=== PATIENT | female | born 1965 | race African-American/Black ===

== ENCOUNTER 2022-01-08 08:00 | Emergency (ER) | payer OTHER ==
[~2022-01-08] VITALS: Ht 162.6 cm; Wt 57.4 kg
--- NOTE | 2022-01-08 08:35 | PHYS DOC ---
General Adult EDM: Chief Complaint: CHEST PAIN HPI: HPI: Patient is a 56-year-old female coming in for chest pain that started 6 days ago. Patient states the pain started and went away after about a day, came back a couple days ago. His knee pain is aching in the left anterior chest, does not radiate. Says it is slightly worse when she is feeling anxious or stressed, also with taking a deep breath. Denies any trauma or heavy lifting. Patient has no significant medical history and does not take any medications. Denies tobacco and drug use, drinks rarely. Has had her Pfizer vaccines. History of blood clot in her mother. No personal history of blood clots. She has not taken anything for the pain. No fevers, cough, shortness of breath. Pain is not changed with position. Review of Systems: Review of Systems: All other systems within normal limits except for as noted in the HPI Allergies: Allergies: Allergies Coded Allergies Type Severity Reaction Last Updated Verified No Known Drug Allergies 01/08/22 No Physical Exam: PE: Constitutional: Well developed, well nourished, no acute distress, non-toxic appearance. [] HENT: Normocephalic, atraumatic, bilateral external ears normal, nose normal. [] Eyes: PERRLA, conjunctiva normal, no discharge. [] Neck: No rigidity, supple, no stridor. [] Cardiovascular: Regular rate and rhythm, brisk cap refill [] Lungs & Thorax: Non labored symmetric respirations, no tachypnea or respiratory distress. Lungs clear to auscultation [] Abdomen: Soft, nondistended. Skin: Warm, dry, no erythema, no rash. [] Back: Unremarkable Extremities: No deformities, range of motion grossly intact, no lower extremity edema [] Neurologic: Alert and oriented X 3, no focal deficits noted. [] Psychologic: Affect normal, judgement normal, mood normal. [] EKG: EKG: Sinus rhythm, heart rate 70 bpm, normal axis, normal intervals, no STEMI [] Radiology/Procedures: Radiology/Procedures: [address] [address] IMAGING REPORT Signed PATIENT: SERA BRADY ACCOUNT: [id number] : 1965 LOCATION: ER AGE: 56 SEX: F EXAM STATUS: REG ER ORD. PHYSICIAN: PRAVEEN JOY MD REASON: CHEST PAIN PROCEDURE: CT ANGIOGRAPHY CHEST CTA Chest with contrast: Clinical History: Reason: CHEST PAIN / Spl. Instructions: GAVE OMNI 350 100CC / History: Shortness of breath. Axial helical images of the chest were obtained after the administration of 100 cc of IV Omnipaque 350 and timed appropriately for a pulmonary arterial study. Conventional axial reconstruction was performed in addition to coronal, sagittal and bilateral oblique MIP (maximum intensity projection). This study was ordered to detect possible pulmonary embolism. There are no filling defects to suggest pulmonary embolism. The lungs and pleural margins are clear. There is no mediastinal or hilar lymphadenopathy. The thoracic aorta appears normal. Impression: 1. No evidence of pulmonary embolism. 2. No significant findings. PQRS Compliance Statement: One or more of the following individualized dose reduction techniques were utilized for this examination: 1. Automated exposure control 2. Adjustment of the mA and/or kV according to patient size 3. Use of iterative reconstruction technique Electronically signed by: Carline Schmitz III, MD (01/08/2022 9:25 AM) [facility] DICTATED AND SIGNED BY: CARLINE SCHMITZ III, MD DATE: 01/08/22920 CC: PRAVEEN JOY MD; PCP,UNKNOWN ~ [] Heart Score: C/O Chest Pain: Yes HEART Score for Chest Pain: HEART Score for Chest Pain Response (Comments) Value History Slighlty/Non-Suspicious 0 ECG Normal 0 Age >45 - < 65 1 Risk Factors No Risk Factors 0 Troponin < Normal Limit 0 Total 1 Risk Factors: Risk Factors: DM, Current or recent (<one month) smoker, HTN, HLP, family history of CAD, obesity. Risk Scores: Score 0 - 3: 2.5% MACE over next 6 weeks - Discharge Home Score 4 - 6: 20.3% MACE over next 6 weeks - Admit for Clinical Observation Score 7 - 10: 72.7% MACE over next 6 weeks - Early Invasive Strategies Course & Med Decision Making: Course & Med Decision Making Pertinent Labs and Imaging studies reviewed. (See chart for details) Work-up unremarkable, patient refused GI cocktail. [] Dragon Disclaimer: Dragon Disclaimer: This electronic medical record was generated, in whole or in part, using a voice recognition dictation system. Departure Departure: Impression: Primary Impression: Chest pain Disposition: HOME / SELF CARE / HOMELESS Referrals: [facility] Patient Instructions: Chest Pain (Nonspecific) PRAVEEN JOY MD Jan 08, 2022 08:35
[2022-01-08] MEDS ORDERED: CONTRAST GIVEN. MC PRN (08:45)
[2022-01-08] MEDS ORDERED: IOHEXOL 350 MG/ML 100 ML VIAL. IV ONE (08:45)
[2022-01-08 08:49] LABS: BASO % 1 % (0-3); EOS # 0.1 x10^3/uL (0.0-0.7); EOS % 3 % (0-3); HEMATOCRIT 40.3 % (36.0-47.0); HEMOGLOBIN 13.3 g/dL (12.0-15.5); LYMPH # 1.4 x10^3/uL (1.0-4.8); LYMPH % 32 % (24-48); MEAN CORPUSCULAR HEMOGLOBIN 31 pg (25-35); MEAN CORPUSCULAR HGB CONC 33 g/dL (31-37); MEAN CORPUSCULAR VOLUME 93 fL (79-100); MONO # 0.4 x10^3/uL (0.0-1.1); MONO % 8 % (0-9); NEUT # 2.5 x10^3uL (1.8-7.7); NEUT % 56 % (31-73); PLATELET COUNT 210 x10^3/uL (140-400); RED BLOOD COUNT 4.31 x10^6/uL (3.50-5.40); RED CELL DISTRIBUTION WIDTH 14.7 % (11.5-14.5); WHITE BLOOD COUNT 4.5 x10^3/uL (4.0-11.0)
[2022-01-08 09:00] LABS: CALCIUM 8.7 mg/dL (8.5-10.1); CREATININE 0.8 mg/dL (0.6-1.0); GFR 89.1; POTASSIUM 3.9 mmol/L (3.5-5.1)
[2022-01-08 09:12] LABS: ALBUMIN 3.6 g/dL (3.4-5.0); ALBUMIN/GLOBULIN RATIO 1.1 (1.0-1.7); MAGNESIUM 2.2 mg/dL (1.8-2.4); PHOSPHORUS 3.8 mg/dL (2.6-4.7); TOTAL BILIRUBIN 0.3 mg/dL (0.2-1.0); TOTAL PROTEIN 6.8 g/dL (6.4-8.2)
--- NOTE | 2022-01-08 09:28 | RAD ---
CTA Chest with contrast: Clinical History: Reason: CHEST PAIN / Spl. Instructions: GAVE OMNI 350 100CC / History: Shortness o f breath. Axial helical images of the chest were obtained after the administration of 100 cc of IV Omnipaque 35 0 and timed appropriately for a pulmonary arterial study. Conventional axial reconstruction was perf ormed in addition to coronal, sagittal and bilateral oblique MIP (maximum intensity projection). Thi s study was ordered to detect possible pulmonary embolism. There are no filling defects to suggest pulmonary embolism. The lungs and pleural margins are clear. There is no mediastinal or hilar lymphadenopathy. The thoracic aorta appears normal. Impression: 1. No evidence of pulmonary embolism. 2. No significant findings. PQRS Compliance Statement: One or more of the following individualized dose reduction techniques were utilized for this examinat ion: 1. Automated exposure control 2. Adjustment of the mA and/or kV according to patient size 3. Use of iterative reconstruction technique Electronically signed by: Dc Schmitz III, MD (01/08/2022 9:25 AM) [facility]
[2022-01-08 09:30] LABS: BACTERIA,URINE 0 /HPF (0-FEW); CLARITY,URINE CLEAR; COLOR,URINE STRAW; GLUCOSE,URINE NEG (NEG); NITRITE,URINE NEG (NEG); RBC,URINE 0 /HPF (0-2); SQUAMOUS EPITHELIAL CELL,UR OCC /LPF; UROBILINOGEN,URINE 0.2 mg/dL (0.2 mg/dL); WBC,URINE 0 /HPF (0-4)
[2022-01-08] MEDS ORDERED: LIDO:MAALOX 1:1 20 ML SINGLE DOSE. PO ONE (09:30)
[2022-01-08 10:00] VITALS: BP 127/77
--- NOTE | 2022-01-08 18:52 | EKG ---
[facility] [place] [id number] Test Date: 2022-01-08 Test Time: 08:13:30 Pat Name: SERA BRADY Department: Room: Gender: F [employer]: : 1965 Requested By: PRAVEEN JOY Order Number: [id number] Reading MD: Nick Ferreira Measurements Intervals [place] Rate: 70 P: 62 DC: 184 QRS: 39 QRSD: 76 T: 51 QT: 374 QTc: 407 Interpretive Statements SINUS RHYTHM LEFT ATRIAL ABNORMALITY T ABNORMALITY IN ANTERIOR LEADS ABNORMAL ECG RI6.02 No previous ECG available for comparison Electronically Signed On 01-08-2022 21:16:33 CDT by Nick Ferreira
== END 2022-01-08 10:05 | disposition home or self-care (01) ==
LOC: ER 08:00
DX: R07.89 Other chest pain (principal)
CPT/HCPCS: 36415; 71275; 80053; 81001; 83690; 83735; 83880; 84100; 84484; 85025; 93005; 99285; Q9967